=== PATIENT | female | born 1980 | race Caucasian/White ===

== ENCOUNTER 2025-01-17 03:25 | Emergency (ER) | payer OTHER, SELFPAY ==
[2025-01-17] VITALS (8 sets, daily range): BP systolic 107–139; BP diastolic 50–97; BMI 34.4
--- NOTE | 2025-01-17 03:58 | ED.GENMED ---
History of Present Illness
General
Chief Complaint: Flank Pain
Source: patient
Exam Limitations: none
Time Seen by Provider: 01/17/25 03:38
Nursing documentation reviewed up to this point in time: agreed with
History of Present Illness
History of Present Illness:
Note:
CHIEF COMPLAINT(S)
Left-sided abdominal pain.
HISTORY OF PRESENT ILLNESS
The patient is a 44-year-old female with a history of kidney stones, reactive airway disease, presenting to the ER today with concerns of with intense left-sided flank pain radiating into the groin which woke her up from sleep. The pain differs in
character from previous episodes of kidney stones but has significant intensity. The pain radiates from the back to the front. She denies hematuria, dysuria, urinary frequency, hesitancy. She has no fevers or chills. The patient mentions a past
kidney stone episode that required surgical intervention. She follows with a urologist from [facility].
PAST MEDICAL AND SURGICAL HISTORY
The patient has a history of kidney stones and has undergone surgery for them previously. She also has had an appendectomy.
CHRONIC MEDICAL CONDITIONS SIGNIFICANTLY AFFECTING CARE
History of kidney stones.
ALLERGIES
No known allergies.
SOCIAL HISTORY
The patient mentions she follows up with a urologist but cannot recall the physicians name.
REVIEW OF SYSTEMS
- Genitourinary: Pain radiating from the back to the front. Uncertain about urinary symptoms such as blood in urine or burning sensation.
PHYSICAL EXAM
General: Alert, no acute distress.
Skin: Warm, dry.
Head: Normocephalic, atraumatic.
Neck: Supple, trachea midline.
Eye, Ears, Nose, Mouth, and Throat: Oral mucosa moist.
Cardiovascular: Regular rate and rhythm. No murmurs. Normal peripheral perfusion, no edema.
Respiratory: No wheezes, rales, or rhonchi. Respirations are non-labored.
Gastrointestinal: Abdomen nondistended. Left CVA tenderness noted.No abdominal tenderness to palpation. No palpable abdominal masses.
Back: Normal range of motion, normal alignment.
Musculoskeletal: Normal range of motion, normal strength.
Neurological: CN II-XII intact. Alert and oriented to person, place, time, and situation, no focal neurological deficit observed.
Psychiatric: Cooperative, appropriate mood and affect.
PROBLEM LIST
Acute Problems:
- Intense left-sided cva tenderness
Chronic Problems:
- History of kidney stones.
PLAN
- Pain management to relieve the current intense abdominal pain.
- cbc, cmp, lipase
- urinalysis
DIFFERENTIAL DIAGNOSIS
The Differential Diagnosis includes, in no particular order and is not limited to:
- Nephrolithiasis (kidney stones)
- Urinary tract infection
- Appendicitis (though less likely due to past appendectomy)
- Pyelonephritis
- Abdominal aortic aneurysm
- Diverticulitis
- Gallstones (cholelithiasis)
- Musculoskeletal pain
- Gastroenteritis
- Ovarian cyst
LABS
No leukocytosis
Normal renal function
CHART REVIEW
Reviewed discharge summary from 10/22/2019, patient seen for UTI secondary to right renal stone, had operation done by Dr. Burnette
MDM/disposition
44-year-old female presents to the ER today with concerns of left flank pain. She was found to have mild left hide ureteronephrosis secondary to calcified 3 mm stone at the left UVJ. She has no white BC count. No fever. Normal renal function.
Urinalysis shows occult blood as well as ketones, leukocyte esterase, and moderate bacteria however no nitrates, minimal white blood cells. However, again, patient has no UTI symptoms, no fever. Discussed case with Dr. Nguyen, urologist
on-call who agrees with plan to discharge patient on Keflex and give dose of Rocephin in the ER with close follow-up as an outpatient with her urologist. Will also start tamsulosin. Patient stable for discharge.
CAT scan also mentioned that IUD was malpositioned. Reviewed this with ED attending. Patient will require follow-up with her [employer]. Patient will call make an appointment. Discussed strict return precautions. Patient stable for discharge.
Past History
Past History
ED Past Medical History: None
ED Past Surgical History: None
Social History
Tobacco: Non-smoker
Alcohol: None
Review of Systems
Review of Systems
All Other Systems: ROS reviewed and negative except as documented in HPI and ROS
Phy Exam
Physical Exam
Physical Exam:
see hpi
Course
Orders/Labs/Results
Orders:
Orders
01/17/25 03:57
CT Abd/pel Without Iv Or Oral Urgent
Comment:
Reason For Exam: left flank pain
0.9% Sodium Chloride 500 ml [Nss] 500 ml IV BOLUS
Ketorolac [Toradol] 30 mg IV NOW STA
Ondansetron Injectable [Zofran] 4 mg IV NOW STA
Test Result ONCE
01/17/25 04:05
Complete Blood Count/With Diff Urgent
Comprehensive Metabolic Panel Urgent
HCG, Serum Qualitative Screen Urgent
Lipase Urgent
01/17/25 05:42
HYDROmorphone [Dilaudid] 0.5 mg IV NOW STA
01/17/25 06:05
Urinalysis Reflex To Culture Urgent
Date Specimen was Collected: 01/17/25
Time Specimen was Collected: 06:01
Urine Microscopic Reflex Cult Urgent
Urine Culture Urgent
LIAM Source: U
Specimen Description:
Date Specimen was Collected: 01/17/25
Time Specimen was Collected: 06:01
01/17/25 07:14
CefTRIAXone [Rocephin] 2,000 mg IV NOW STA
Tamsulosin [Flomax] 0.4 mg PO NOW STA
01/17/25 07:24
Sterile Water [Sterile Water For Injection] 20 ml .ROUTE .STK-MED
01/17/25 07:54
Ibuprofen [Motrin] 800 mg PO NOW STA
01/17/25 07:57
HYDROmorphone [Dilaudid] 0.5 mg IV NOW STA
Abnormal Lab Results
01/17/25 01/17/25
04:05 06:05
MPV 10.7 H fL
(7.4-10.4)
Glucose 116 H mg/dl
(70-99)
Urine Ketones 3+ A
(Negative)
Ur Occult Blood Reflex 4+ A
(Negative)
Leukocyte Esterase Rfl 1+ A
(Negative)
Urine RBC 50-60 A /HPF
(0-2)
Urine Bacteria (Reflex) Moderate A
(Negative)
Urine Albumin (Reflex) 3+ A
(Neg - Trace)
01/17/25 04:05
01/17/25 04:05
Vital Signs
Initial and Last Documented VS:
Initial Vital Signs
Temp Pulse Resp BP Pulse Ox
98.1 F 80 20 139/95 100
01/17/25 03:30 01/17/25 03:30 01/17/25 03:30 01/17/25 03:30 01/17/25 03:30
Last Documented Vital Signs
Temp Pulse Resp BP Pulse Ox
98.1 F 91 15 109/57 98
01/17/25 03:30 01/17/25 07:33 01/17/25 07:33 01/17/25 07:33 01/17/25 07:33
*Pulse Oximetry
SaO2: 99
Oxygen Mode of Delivery: Room air
Patient hypoxic: no
*Critical Care Note
Total Time (30-74mins, 75-104mins- exclusive of procedures): Not Applicable
Update Note
Update Note:
Update, patient feeling much improved, does request a dose of pain medication, not due for toradol yet

8:00 am--patient complaining of increasing pain. Will trial additional pain meds, case and it to [facility] pending reassessment

ED Attending Note
-
Portions of this chart may have been created with voice recognition software.� Occasional wrong word or��sound alike� substitutions may have occurred due to the inherent limitations of voice recognition software.
Discharge Plan
Departure
Patient Disposition: Home (Routine Discharge)
Date of Disposition: 01/17/25
Time of Disposition: 07:21
Patient with high blood pressure during this ER visit?: Yes
Condition: Good
Discharge Problem:
Calculus of left ureter
Instructions: Kidney Stones (DC), How to Strain Your Urine, BLOOD PRESSURE
Prescriptions:
New
cephalexin 500 mg capsule
500 mg PO BID 7 Days Qty: 14 0RF
tamsulosin 0.4 mg capsule
0.4 mg PO DAILY Qty: 7 0RF
No Action
ciprofloxacin HCl [Cipro] 500 MG tablet
500 mg PO BID Qty: 6 0RF
Referrals:
Ayden Crocker MD [Family Provider, Internal Medicine]
Activity Restrictions/Additional Instructions:
You can take ibuprofen at 8:00 am. You can take 600 to 800 mg every 6 hours. Please do not exceed 3200 mg/day.
Regarding the malpositioned IUD, please follow up with your OBGYN, please call for an appointment.
Flomax has been sent to your pharmacy. Please take 1 tablet once daily until stone passage. Please strain your urine. Keflex, an antibiotic, has been sent to your pharmacy. Please take 1 tablet twice daily for 7 days.
Please call your urologist to schedule close follow-up appointment and see that you are seen in the ER.
PLEASE RETURN TO ER SHOULD YOU DEVELOP FEVERS, CHILLS, ACUTE WORSENING OF YOUR PAIN, BURNING WITH URINATION, PELVIC PAIN, CHEST PAIN, SHORTNESS OF BREATH, LIGHTHEADEDNESS, DIZZINESS, OR ANY OTHER SIGNS OR SYMPTOMS WORRISOME TO YOU.
Interventions
Interventions:
*Risk Screen - Suicide Last Done: 01/17/25 03:30
*General Assessment Last Done: 01/17/25 03:30
*Neglect/Abuse Screening Last Done: 01/17/25 03:45
*ED- Fall Risk Assessment Last Done: 01/17/25 03:45
*ED COVID-19 Vaccine History Last Done: 01/17/25 03:45
*ED Influenza Vaccine History Last Done: 01/17/25 03:45
BF-Jgbbji-Hontilrean Assessment Last Done: 01/17/25 03:47
ED-Female Genitourinary Assessment Last Done: 01/17/25 07:33
Discharge Date and Time
Print Language: THAI
[2025-01-17] MEDS: TORADOL 30 MG IV (04:03)
[2025-01-17] MEDS: ZOFRAN 4 MG IV (04:03)
[2025-01-17] MEDS: NSS 500 IV (04:04)
[2025-01-17 04:19] LABS: Hematocrit 39.6 % (37.0-47.0); Hemoglobin 13.9 g/dL (12.0-16.0); Mean Corp Hgb Conc. 35.1 g/dL (33.0-37.0); Mean Corpuscular Volume 87.6 fL (81.0-99.0); Nucleated Red Blood Cells % 0 %; Platelet Count 289 10^3/uL (130-400); Red Cell Dist. Width 11.9 % (11.5-14.5)
[2025-01-17 04:23] LABS: HCG, Serum Qualitative Screen Negative
[2025-01-17 04:35] LABS: ALT (SGPT) 19 U/L (0-35); AST (SGOT) 18 U/L (14-36); Albumin 4.9 g/dl (3.5-5.0); Alkaline Phosphatase 62 U/L (38-126); Blood Urea Nitrogen 13 mg/dl (7-17); Calcium 9.7 mg/dl (8.4-10.2); Carbon Dioxide 22 mmol/L (22-30); Chloride 107 mmol/L (98-107); Estimated Creatinine Clearance 94 ml/min; Glucose 116 mg/dl (70-99); Lipase 145 U/L (23-300); Potassium 4.2 mmol/L (3.5-5.1); Sodium 138 mmol/L (135-145); Total Protein 7.7 g/dl (6.3-8.2); eGFR > 60.00
[2025-01-17] MEDS: DILAUDID 0.5 MG IV ×2 (06:02→08:07)
[2025-01-17 06:39] LABS: Urine Character Slightly Cloudy (Clear)
[2025-01-17 06:49] LABS: Urine Red Blood Cell 50-60 /HPF (0-2)
[2025-01-17] MEDS: FLOMAX 0.4 MG PO (07:27)
[2025-01-17] MEDS: ROCEPHIN 2000 MG IV (07:30)
[2025-01-17] MEDS: MOTRIN 800 MG PO (08:03)
== END 2025-01-17 10:51 | disposition home or self-care (01) ==
LOC: EMR 03:25
PROVIDERS: Physician Assistant; EMERGENCY PHYSICIAN Student in an Organized Health Care Education/Training Program; FAMILY PHYSICIAN Internal Medicine
DX: N13.2 Hydronephrosis with renal and ureteral calculous obstruction (principal); J45.909 Unspecified asthma, uncomplicated; Z90.49 Acquired absence of other specified parts of digestive tract
CPT/HCPCS: 96374; 96375; 96376; 96361; 99284; 74176; 80053; 81003; 81015; 83690; 84703; 85025; 87086